=== PATIENT | female | born 1995 | race Caucasian/White ===

== ENCOUNTER → 2017-11-07 | Outpatient (CLI) | payer OTHER ==
[~2017-11-07] MED LIST: BACTRIM DS 8001 TA1 PO; BIRTH CONTROL1 EAC1 PO; CLINDAMYCIN HC300 MG PO; CLINDAMYCIN300 MG PO; LOMOTIL 0.025 M1 TA1 PO; NKHM; Zofran4 MG PO
== END | disposition home or self-care (01) ==
LOC: US 09:49
DX: R10.9 Unspecified abdominal pain (principal)

== ENCOUNTER 2018-01-31 10:43 | Emergency (ER) | payer SELFPAY ==
[~2018-01-31] VITALS: Wt 68.0 kg
[2018-01-31] MEDS ORDERED: DOXYCYCLINE100 M3 PO (10:47)
[2018-01-31 11:09] LABS: HEMATOCRIT 39.4 % (37.0-47.0); HEMOGLOBIN 13.2 g/dl (12.0-16.0); MEAN CELL VOLUME 84.9 fl (81.0-99.0); MEAN CORPUSCULAR HGB 28.4 pg (27.0-31.0); MEAN CORPUSCULAR HGB CONC 33.5 g/dl (33.0-37.0); MEAN PLATELET VOLUME 8.7 fl (9.6-12.3); PLATELET COUNT AUTOMATED 359 10*3/uL (130-400); RED BLOOD COUNT 4.64 10*6/uL (4.10-5.10); RED CELL DISTRI WIDTH 12.6 % (0-14.5); WHITE BLOOD COUNT 13.7 10*3/uL (4.8-10.8)
[2018-01-31 11:25] LABS: ALBUMIN 3.4 gm/dl (3.1-4.5); ALKALINE PHOSPHATASE 79 U/L (45-117); BUN 8 mg/dl (7-24); CHLORIDE 104 mmol/L (98-107); CREATININE 0.76 mg/dL (0.55-1.02); POTASSIUM 3.3 mmol/L (3.5-5.1); SGOT/AST 12 IU/L (3-35); SGPT/ALT 13 U/L (12-78); SODIUM 138 mmol/L (136-145); TOTAL PROTEIN 8.1 gm/dL (6.4-8.2)
[2018-01-31 11:36] LABS: ATYPICAL LYMPHS 1 % (0-0); PLATELET SUFFICIENCY NORMAL (NORMAL); TOTAL CELLS COUNTED 100 #CELLS
[2018-01-31] MEDS ORDERED: PREDNISONE10 MG PO (12:54)
[2018-01-31] MEDS ORDERED: AUGMENTIN 875875 MG PO (12:54)
== END 2018-01-31 13:20 | disposition home or self-care (01) ==
LOC: ED 10:43
PROVIDERS: Registered Nurse
DX: J36 Peritonsillar abscess (principal)

== ENCOUNTER 2018-04-07 22:31 | Emergency (ER) | payer SELFPAY ==
[~2018-04-07] VITALS: Ht 162.5 cm; Wt 70.3 kg
[~2018-04-07 22:31] MED LIST changes: +AUGMENTIN 875875 MG PO; +DOXYCYCLINE100 M3 PO; +PREDNISONE10 MG PO
[2018-04-07] MEDS ORDERED: FLONASE ALLERG9.9 ML NAS (22:49)
[2018-04-07] MEDS ORDERED: CLARITIN10 MG PO (22:49)
== END 2018-04-07 23:44 | disposition home or self-care (01) ==
LOC: ED 22:31
DX: J30.2 Other seasonal allergic rhinitis (principal); R05 Cough; R06.7 Sneezing; R09.89 Other specified symptoms and signs involving the circulatory and respiratory systems; R68.83 Chills (without fever); R53.83 Other fatigue

== ENCOUNTER 2019-05-14 15:11 | Emergency (ER) | payer OTHER ==
[~2019-05-14] VITALS: Ht 162.5 cm; Wt 77.1 kg
[~2019-05-14 15:11] MED LIST changes: +CLARITIN10 MG PO; +FLONASE ALLERG9.9 ML NAS
== END 2019-05-14 15:34 | disposition home or self-care (01) ==
LOC: ED 15:11
DX: Z00.00 Encounter for general adult medical examination without abnormal findings (principal); Z03.89 Encounter for observation for other suspected diseases and conditions ruled out; Z79.2 Long term (current) use of antibiotics; Z79.899 Other long term (current) drug therapy